=== PATIENT | female | born 1955 | race Caucasian/White ===

== ENCOUNTER 2017-08-04 19:36 | Emergency (ER) | payer MEDICAID ==
[~2017-08-04] VITALS: Ht 160 cm; Wt 91.3 kg
[2017-08-04 19:41] VITALS: TEMP 99.2
[2017-08-04 20:32] LABS: BASO # 0.1 (0.0-0.2); BASO % 0.7 % (0.0-2.0); EOS # 0.1 (0.0-0.7); EOS % 1.1 % (0-4.0); GRAN # 7.3 (1.4-6.5); GRAN % 73.2 % (42.2-75.2); LYMPH # 1.9 (1.2-3.4); LYMPH % 18.5 % (20.0-51.0); MEAN CELL VOLUME 87 fl (80.0-100.0); MEAN CORPUSCULAR HGB CONC 34 g/dl (33.0-37.0); MEAN PLATELET VOLUME 10.2 fl (7.4-10.4); MONO # 0.6 (0.1-0.6); MONO % 6.1 % (1.7-9.3); PLATELET COUNT 340 K/mm3 (130-400); RED BLOOD COUNT 4.03 M/mm3 (4.10-5.30); REDCELL DISTRIBUTION WIDTH-CV 13.7 % (11.5-14.5)
[2017-08-04 20:33] LABS: HEMATOCRIT 34.9 % (37.0-47.0); HEMOGLOBIN 11.8 g/dl (12.5-16.0); MEAN CORPUSCULAR HEMOGLOBIN 29 pg (27.0-31.0)
[2017-08-04 20:41] LABS: BILIRUBIN,TOTAL 0.6 mg/dL (0.0-1.0); CALCIUM 9.1 mg/dL (8.4-10.2); CREATININE, serum 1.28 mg/dL (0.52-1.25); POTASSIUM 3.8 mmol/L (3.4-5.0)
[2017-08-04 20:52] LABS: COLLECTION METHOD CLEAN CATCH
[2017-08-04 21:02] LABS: MUCOUS Present /lpf; PH 7 (5-8); SQUAMOUS EPITHELIAL 0-2 /hpf; URINE APPEARANCE Hazy; URINE BACTERIA Occasional /hpf; URINE BILIRUBIN Negative (NEGATIVE); URINE BLOOD 1+ (NEGATIVE); URINE COLOR Yellow; URINE GLUCOSE Negative (NEGATIVE); URINE KETONE Negative (NEGATIVE); URINE LEUKOCYTE ESTERASE Trace (NEGATIVE); URINE NITRATE Positive (NEGATIVE); URINE PROTEIN(semi-quant) Negative (NEGATIVE); URINE RBC 0-2 /hpf; URINE UROBILINOGEN Negative (NEGATIVE)
[2017-08-04] MEDS ORDERED: NORCO 325 MG-51 TAB PO (21:52)
[2017-08-04] MEDS ORDERED: ZOFRAN ODT4 MG PO (21:52)
[2017-08-04] MEDS ORDERED: FLAGYL500 MG PO (21:52)
[2017-08-04] MEDS ORDERED: CIPRO 500MG TA500 MG PO (21:52)
[2017-08-04 22:25] VITALS: BP 182/93; PULSE 74
== END 2017-08-04 22:36 | disposition home or self-care (01) ==
LOC: COL.ER 19:36
PROVIDERS: Emergency Medicine
DX: K52.9 Noninfective gastroenteritis and colitis, unspecified (principal); N39.0 Urinary tract infection, site not specified; E11.9 Type 2 diabetes mellitus without complications; Z98.890 Other specified postprocedural states
CPT/HCPCS: J2405; J7030

== ENCOUNTER 2017-09-28 10:31 | Inpatient (IN) | payer MEDICAID ==
[~2017-09-28] VITALS: Ht 160 cm; Wt 89.5 kg
[2017-09-28] VITALS (8 sets, daily range): BP systolic 120–146; BP diastolic 66–75; PULSE 93–101; TEMP 97.8
[~2017-09-28 10:31] MED LIST: CIPRO 500MG TA500 MG PO; FLAGYL500 MG PO; MACROBID 1100 MG/CAP PO; NORCO 325 MG-51 TAB PO; ZOFRAN ODT4 MG PO
[2017-09-28 10:46] LABS: BASO # 0.1 (0.0-0.2); BASO % 0.7 % (0.0-2.0); EOS # 0.1 (0.0-0.7); EOS % 1.8 % (0-4.0); GRAN # 5.2 (1.4-6.5); GRAN % 71.6 % (42.2-75.2); HEMOGLOBIN 12.4 g/dl (12.5-16.0); LYMPH # 1.5 (1.2-3.4); LYMPH % 19.9 % (20.0-51.0); MEAN CELL VOLUME 87 fl (80.0-100.0); MEAN CORPUSCULAR HEMOGLOBIN 28 pg (27.0-31.0); MEAN CORPUSCULAR HGB CONC 33 g/dl (33.0-37.0); MONO # 0.4 (0.1-0.6); MONO % 5.9 % (1.7-9.3); PLATELET COUNT 343 K/mm3 (130-400); RED BLOOD COUNT 4.38 M/mm3 (4.10-5.30); REDCELL DISTRIBUTION WIDTH-CV 14.2 % (11.5-14.5)
[2017-09-28 10:56] LABS: ALANINE AMINOTRANSFERASE 21 U/L (9-52); ALKALINE PHOSPHATASE 164 U/L (50-136); ANION GAP 18 mmol/L (7-16); AST,SGOT 27 U/L (15-37); BILIRUBIN,TOTAL 0.7 mg/dL (0.0-1.0); BLOOD UREA NITROGEN 22 mg/dL (7-17); CALCIUM 9.1 mg/dL (8.4-10.2); CARBON DIOXIDE 23 mmol/L (22-30); CHLORIDE 97 mmol/L (98-107); CREATININE, serum 1.14 mg/dL (0.52-1.25); GLUCOSE 140 mg/dL (74-106); LIPASE 48 U/L (23-300); POTASSIUM 3.4 mmol/L (3.4-5.0); SODIUM 139 mmol/L (137-145); TOTAL PROTEIN 7.6 gm/dL (6.4-8.2)
[2017-09-28 10:57] LABS: C-REACTIVE PROTEIN < 0.5 mg/dL (0.0-0.9)
[2017-09-28 11:07] LABS: TROPONIN-I < 0.012 ng/mL (0.000-0.034)
[2017-09-28] MEDS ORDERED: COGENTIN 1MG1 MG/TAB PO (12:04)
[2017-09-28] MEDS ORDERED: ZOLOFT 100MG100 MG PO (12:05)
[2017-09-28] MEDS ORDERED: GEODON80 MG PO (12:20)
[2017-09-28] MEDS ORDERED: HCTZ 25MG TAB25 MG PO (12:20)
[2017-09-28] MEDS ORDERED: PRILOSEC 20MG20 MG PO (12:21)
[2017-09-28] MEDS ORDERED: LIPITOR 10MG10 MG PO (12:22)
[2017-09-28] MEDS ORDERED: MOBIC15 MG PO (12:22)
[2017-09-28] MEDS ORDERED: NEURONTIN100 MG/CAP PO (12:22)
[2017-09-28 12:32] LABS: COLLECTION METHOD CLEAN CATCH
[2017-09-28 12:42] LABS: MUCOUS Present /lpf; PH 7 (5-8); SQUAMOUS EPITHELIAL None Seen /hpf; URINE APPEARANCE Clear; URINE BACTERIA None Seen /hpf; URINE BILIRUBIN Negative (NEGATIVE); URINE BLOOD Negative (NEGATIVE); URINE COLOR Yellow; URINE GLUCOSE Negative (NEGATIVE); URINE KETONE Trace (NEGATIVE); URINE LEUKOCYTE ESTERASE Negative (NEGATIVE); URINE NITRATE Negative (NEGATIVE); URINE PROTEIN(semi-quant) Negative (NEGATIVE); URINE UROBILINOGEN Negative (NEGATIVE)
[2017-09-29] VITALS: BP 115/69; PULSE 95; TEMP 98
[2017-09-29 04:00] VITALS: BP 106/55; PULSE 79; TEMP 98
[2017-09-29 06:33] LABS: HEMOGLOBIN 10.5 g/dl (12.5-16.0); MEAN CELL VOLUME 86 fl (80.0-100.0); MEAN CORPUSCULAR HEMOGLOBIN 29 pg (27.0-31.0); MEAN CORPUSCULAR HGB CONC 33 g/dl (33.0-37.0); MEAN PLATELET VOLUME 10.5 fl (7.4-10.4); PLATELET COUNT 263 K/mm3 (130-400); RED BLOOD COUNT 3.69 M/mm3 (4.10-5.30); REDCELL DISTRIBUTION WIDTH-CV 14.4 % (11.5-14.5)
[2017-09-29 06:36] LABS: HEMATOCRIT 31.7 % (37.0-47.0)
[2017-09-29 06:45] LABS: ALBUMIN 2.9 gm/dL (3.5-5.0); BILIRUBIN,TOTAL 0.6 mg/dL (0.0-1.0); CALCIUM 7.9 mg/dL (8.4-10.2); CREATININE, serum 0.98 mg/dL (0.52-1.25); POTASSIUM 3.1 mmol/L (3.4-5.0); TOTAL PROTEIN 5.7 gm/dL (6.4-8.2)
[2017-09-29 07:22] VITALS: BP 99/45; PULSE 90; TEMP 98.4
[2017-09-29 08:04] LABS: BAND 13 % (0-10); BASOPHIL 1 % (0-2); LYMPHOCYTE 2 % (20.0-51.0); NEUTROPHILS 83 % (42.0-75.2); PLATELET ESTIMATE NORMAL (NORMAL)
[2017-09-29 11:49] VITALS: BP 117/67; PULSE 88; TEMP 97.5
[2017-09-29 16:07] VITALS: BP 99/60; PULSE 94; TEMP 99.4
[2017-09-29 20:00] VITALS: BP 100/55; PULSE 102; TEMP 100.2
[2017-09-30 04:00] VITALS: BP 102/57; PULSE 101; TEMP 99
[2017-09-30 07:06] LABS: MEAN CELL VOLUME 88 fl (80.0-100.0); MEAN CORPUSCULAR HGB CONC 32 g/dl (33.0-37.0); MEAN PLATELET VOLUME 10.4 fl (7.4-10.4); PLATELET COUNT 244 K/mm3 (130-400); RED BLOOD COUNT 3.51 M/mm3 (4.10-5.30)
[2017-09-30 07:09] LABS: HEMOGLOBIN 9.9 g/dl (12.5-16.0); MEAN CORPUSCULAR HEMOGLOBIN 28 pg (27.0-31.0)
[2017-09-30 07:13] LABS: CALCIUM 8.4 mg/dL (8.4-10.2); CREATININE, serum 1.28 mg/dL (0.52-1.25); MAGNESIUM 1.9 mg/dL (1.6-2.3); POTASSIUM 3.8 mmol/L (3.4-5.0)
[2017-09-30 08:00] VITALS: BP 116/66; PULSE 73; TEMP 98.5
[2017-09-30 08:41] LABS: BAND 15 % (0-10); LYMPHOCYTE 3 % (20.0-51.0); NEUTROPHILS 82 % (42.0-75.2); PLATELET ESTIMATE NORMAL (NORMAL)
[2017-09-30 12:00] VITALS: BP 92/50; PULSE 94; TEMP 99.3
[2017-09-30 15:45] VITALS: BP 100/47; PULSE 93; TEMP 99.4
[2017-09-30 20:00] VITALS: BP 96/52; PULSE 91; TEMP 99.4
[2017-10-01 04:00] VITALS: BP 107/51; PULSE 89; TEMP 97.5
[2017-10-01 07:03] LABS: MEAN CELL VOLUME 89 fl (80.0-100.0); MEAN CORPUSCULAR HGB CONC 32 g/dl (33.0-37.0); MEAN PLATELET VOLUME 10.4 fl (7.4-10.4); PLATELET COUNT 225 K/mm3 (130-400); RED BLOOD COUNT 3.22 M/mm3 (4.10-5.30); REDCELL DISTRIBUTION WIDTH-CV 14.8 % (11.5-14.5)
[2017-10-01 07:14] LABS: HEMATOCRIT 28.5 % (37.0-47.0); HEMOGLOBIN 9.2 g/dl (12.5-16.0); MEAN CORPUSCULAR HEMOGLOBIN 29 pg (27.0-31.0)
[2017-10-01 07:28] LABS: ANION GAP 9 mmol/L (7-16); BLOOD UREA NITROGEN 26 mg/dL (7-17); CALCIUM 8.5 mg/dL (8.4-10.2); CARBON DIOXIDE 21 mmol/L (22-30); CHLORIDE 106 mmol/L (98-107); CREATININE, serum 1.13 mg/dL (0.52-1.25); GLUCOSE 81 mg/dL (74-106); MAGNESIUM 1.7 mg/dL (1.6-2.3); POTASSIUM 3.4 mmol/L (3.4-5.0); SODIUM 136 mmol/L (137-145)
[2017-10-01 08:22] VITALS: BP 116/56; PULSE 81; TEMP 97.9
[2017-10-01 09:31] LABS: BAND 1 % (0-10); LYMPHOCYTE 5 % (20.0-51.0); NEUTROPHILS 94 % (42.0-75.2); NUCLEATED RED BLOOD CELL 1 (0-6); OVALOCYTES 2+; PLATELET ESTIMATE NORMAL (NORMAL)
[2017-10-01 12:15] VITALS: BP 126/60; PULSE 80; TEMP 98.1
[2017-10-01 15:54] VITALS: BP 142/66; PULSE 89; TEMP 99
[2017-10-01 20:00] VITALS: BP 102/62; PULSE 84; TEMP 98.2
[2017-10-02] VITALS (7 sets, daily range): BP systolic 93–123; BP diastolic 49–68; PULSE 73–85; TEMP 98.1–99.6
[2017-10-02 06:49] LABS: BASO % 0.2 % (0.0-2.0); EOS # 0.3 (0.0-0.7); EOS % 2.7 % (0-4.0); GRAN # 9.1 (1.4-6.5); GRAN % 83.5 % (42.2-75.2); LYMPH # 0.8 (1.2-3.4); LYMPH % 7.1 % (20.0-51.0); MEAN CELL VOLUME 88 fl (80.0-100.0); MEAN CORPUSCULAR HGB CONC 33 g/dl (33.0-37.0); MEAN PLATELET VOLUME 10.3 fl (7.4-10.4); MONO # 0.7 (0.1-0.6); PLATELET COUNT 244 K/mm3 (130-400); REDCELL DISTRIBUTION WIDTH-CV 14.7 % (11.5-14.5)
[2017-10-02 06:54] LABS: HEMATOCRIT 25.4 % (37.0-47.0); HEMOGLOBIN 8.3 g/dl (12.5-16.0); MEAN CORPUSCULAR HEMOGLOBIN 29 pg (27.0-31.0)
[2017-10-02 07:05] LABS: CALCIUM 8.2 mg/dL (8.4-10.2); CREATININE, serum 1.06 mg/dL (0.52-1.25); POTASSIUM 3.9 mmol/L (3.4-5.0)
[2017-10-03 00:28] VITALS: BP 102/61; PULSE 100; TEMP 98.9
[2017-10-03 04:30] VITALS: BP 117/66; PULSE 64; TEMP 98.2
[2017-10-03 08:14] VITALS: BP 106/68; PULSE 73; TEMP 98.2
[2017-10-03 12:15] VITALS: BP 123/63; PULSE 75; TEMP 97.7
[2017-10-03 14:08] VITALS: BP 107/62; PULSE 74; TEMP 97.9
== END 2017-10-03 17:05 | disposition home health service (06) | DRG 330 ==
LOC: COL.ER 10:31 → SURG 13:07
PROVIDERS: Emergency Medicine; Internal Medicine; Nurse Practitioner Family; Physician Assistant; Surgery
PROC: 0FT44ZZ Resection of Gallbladder, Percutaneous Endoscopic Approach (ICD-10-PCS; 2017-09-28)
PROC: 8E0W4CZ Robotic Assisted Procedure of Trunk Region, Percutaneous Endoscopic Approach (ICD-10-PCS; 2017-09-28)
PROC: 0DU Gastrointestinal System, Supplement (ICD-10-PCS; principal; 2017-09-28 14:00)
DX: K26.1 Acute duodenal ulcer with perforation (principal); K80.10 Calculus of gallbladder with chronic cholecystitis without obstruction; I10 Essential (primary) hypertension; F25.0 Schizoaffective disorder, bipolar type; E11.9 Type 2 diabetes mellitus without complications; E87.6 Hypokalemia; E83.42 Hypomagnesemia
CPT/HCPCS: 99222; 99232-AI; A9284; C9113; J0330; J1100; J1170; J1650; J1956; J2270; J2405; J2550; J2704; J3010; J3475; J3480; J7030; Q9967

== ENCOUNTER 2017-11-10 15:45 | Emergency (ER) | payer MEDICAID ==
[~2017-11-10] VITALS: Ht 157.5 cm; Wt 81.4 kg
[~2017-11-10 15:45] MED LIST changes: +COGENTIN 1MG1 MG/TAB PO; +GEODON80 MG PO; +HCTZ 25MG TAB25 MG PO; +LIPITOR 10MG10 MG PO; +MOBIC15 MG PO; +NEURONTIN100 MG/CAP PO; +PRILOSEC 20MG20 MG PO; +ZOLOFT 100MG100 MG PO
[2017-11-10 15:51] VITALS: TEMP 99.4
[2017-11-10 16:33] LABS: BASO # 0.1 (0.0-0.2); BASO % 0.6 % (0.0-2.0); EOS # 0.1 (0.0-0.7); GRAN # 8.3 (1.4-6.5); GRAN % 78.1 % (42.2-75.2); HEMOGLOBIN 9.8 g/dl (12.5-16.0); LYMPH # 1.5 (1.2-3.4); LYMPH % 13.9 % (20.0-51.0); MEAN CELL VOLUME 86 fl (80.0-100.0); MEAN CORPUSCULAR HEMOGLOBIN 27 pg (27.0-31.0); MEAN CORPUSCULAR HGB CONC 32 g/dl (33.0-37.0); MEAN PLATELET VOLUME 8.9 fl (7.4-10.4); MONO # 0.7 (0.1-0.6); MONO % 6.1 % (1.7-9.3); PLATELET COUNT 458 K/mm3 (130-400); RED BLOOD COUNT 3.62 M/mm3 (4.10-5.30); REDCELL DISTRIBUTION WIDTH-CV 14.6 % (11.5-14.5)
[2017-11-10 16:37] LABS: INR 1.1 (0.8-3.0); PROTHROMBIN TIME 12.3 SECONDS (9.7-12.8)
[2017-11-10 16:46] LABS: ALANINE AMINOTRANSFERASE 20 U/L (9-52); ALBUMIN 3.4 gm/dL (3.5-5.0); ALKALINE PHOSPHATASE 117 U/L (50-136); ANION GAP 11 mmol/L (7-16); AST,SGOT 15 U/L (15-37); BILIRUBIN,TOTAL 0.4 mg/dL (0.0-1.0); BLOOD UREA NITROGEN 12 mg/dL (7-17); CALCIUM 8.8 mg/dL (8.4-10.2); CARBON DIOXIDE 28 mmol/L (22-30); CHLORIDE 100 mmol/L (98-107); CREATININE, serum 1.02 mg/dL (0.52-1.25); GLUCOSE 102 mg/dL (74-106); POTASSIUM 3.8 mmol/L (3.4-5.0); SODIUM 139 mmol/L (137-145)
[2017-11-10 16:48] LABS: ALCOHOL(ethanol),MEDICAL < 10 mg/dL; CREATINE KINASE < 20 U/L (30-135)
[2017-11-10 16:58] LABS: TROPONIN-I < 0.012 ng/mL (0.000-0.034)
[2017-11-10 17:04] LABS: COLLECTION METHOD CLEAN CATCH
[2017-11-10 17:11] LABS: MUCOUS Present /lpf; PH 7 (5-8); SQUAMOUS EPITHELIAL 0-2 /hpf; URINE APPEARANCE Hazy; URINE BACTERIA None Seen /hpf; URINE BILIRUBIN Negative (NEGATIVE); URINE BLOOD Negative (NEGATIVE); URINE COLOR Yellow; URINE GLUCOSE Negative (NEGATIVE); URINE KETONE Negative (NEGATIVE); URINE LEUKOCYTE ESTERASE 3+ (NEGATIVE); URINE NITRATE Negative (NEGATIVE); URINE PROTEIN(semi-quant) Negative (NEGATIVE); URINE RBC 0-2 /hpf; URINE UROBILINOGEN Negative (NEGATIVE)
[2017-11-10] MEDS ORDERED: CEPHALEXIN500 M1 PO (19:50)
[2017-11-10 20:15] VITALS: BP 106/81; PULSE 79
== END 2017-11-10 20:20 | disposition home or self-care (01) ==
LOC: COL.ER 15:45
PROVIDERS: Emergency Medicine
DX: N39.0 Urinary tract infection, site not specified (principal); R53.81 Other malaise; I95.1 Orthostatic hypotension; F31.9 Bipolar disorder, unspecified; I10 Essential (primary) hypertension; E78.5 Hyperlipidemia, unspecified; E11.9 Type 2 diabetes mellitus without complications; K21.9 Gastro-esophageal reflux disease without esophagitis; Z90.49 Acquired absence of other specified parts of digestive tract
CPT/HCPCS: J0696; J7030

== ENCOUNTER → 2018-08-27 | Outpatient (CLI) | payer MEDICAID ==
[~2018-08-27] MED LIST changes: +CEPHALEXIN500 M1 PO
== END ==
LOC: COL.RAD 11:26
DX: F03.90 Unspecified dementia, unspecified severity, without behavioral disturbance, psychotic disturbance, mood disturbance, and anxiety (principal); G31.9 Degenerative disease of nervous system, unspecified; H61.893 Other specified disorders of external ear, bilateral
CPT/HCPCS: Q9967